=== PATIENT | female | born 1990 | race Caucasian/White ===

== ENCOUNTER 2016-09-30 11:23 | Emergency (ER) | payer OTHER ==
[2016-09-30 12:49] VITALS: BP 112/69
--- NOTE | 2016-09-30 13:19 | UC ---
Throat Pain/Nasal [place] HPI - HPI Summary HPI Summary: ST, vomiting, cough since yesterday. Is at least 10 weeks , not sure how far along. Young children have fevers as well. Denies trouble breathing. - History of Current Complaint Chief Complaint: UCRespiratory Stated Complaint: VOMITING,SORE THROAT Time Seen by Provider: 09/30/16 12:50 Hx Obtained From: Patient Hx Last Menstrual Period: 07/06/16 ?: Yes Onset/Duration: Gradual Onset, Lasting Days Severity: Moderate Cough: Nonproductive Associated Signs & Symptoms: Positive: Vomiting - Allergies/Home Medications Allergies/Adverse Reactions: Allergies Allergy/AdvReac Type Severity Reaction Status Date / Time No Known Allergies Allergy Verified 05/10/16 12:28 PMH/Surg Hx/FS Hx/Imm Hx Previously Healthy: Yes - Surgical History Surgical History: Yes Surgery Procedure, Year, and Place: - Family History Known Family History: Positive: Hypertension - Social History Lives: With Family Alcohol Use: None Substance Use Type: None Smoking Status (MU): Former Smoker Have You Smoked in the Last Year: Yes When Did the Patient Quit Smoking/Using Tobacco: Jul 2016 Review of Systems Constitutional: Negative Skin: Negative Eyes: Negative ENT: Sore Throat Respiratory: Cough Cardiovascular: Negative Gastrointestinal: Vomiting Genitourinary: Negative Motor: Negative Neurovascular: Negative Musculoskeletal: Negative Neurological: Negative Psychological: Negative All Other Systems Reviewed And Are Negative: Yes Physical Exam Triage Information Reviewed: Yes Appearance: Well-Appearing, No Pain Distress Vital Signs: Initial Vital Signs Temp 99.7 F 09/30/16 12:43 Pulse 112 09/30/16 12:43 Resp 20 09/30/16 12:43 BP 112/69 09/30/16 12:43 Pulse Ox 95 09/30/16 12:43 Vital Signs Reviewed: Yes Eye Exam: Normal Eyes: Positive: Conjunctiva Clear ENT: Positive: Hearing grossly normal, Pharyngeal erythema - R>L Dental Exam: Normal Neck exam: Normal Neck: Positive: Supple, Nontender, No Lymphadenopathy Respiratory Exam: Normal Respiratory: Positive: Chest non-tender, Lungs clear, Normal breath sounds, No respiratory distress, No accessory muscle use Cardiovascular: Positive: No Murmur, Tachycardia Musculoskeletal Exam: Normal Neurological Exam: Normal Neurological: Positive: Alert Psychological Exam: Normal Skin Exam: Normal Throat Pain/Nasal Course/Dx - Differential Dx/Diagnosis Provider Diagnoses: Strep throat. influenza B Discharge - Discharge Plan Condition: Stable Disposition: HOME Prescriptions: Amoxicillin (*) [Amoxicillin 875 MG (*)] 875 mg PO BID #20 tab Oseltamivir CAP* [Tamiflu CAP*] 75 mg PO BID #10 cap Patient Education Materials: Influenza (ED), Strep Throat (ED) Referrals: Perri Barksdale MD [Primary Care Provider] - Additional Instructions: Call or return if you develop increasing fever, shortness of breath, chest pain , bloody sputum, or otherwise worsen. If you have not improved at all after several days, contact your primary care physician or return here.
== END 2016-09-30 14:09 | disposition home or self-care (01) ==
LOC: UCCORT 11:23
DX: J11.1 Influenza due to unidentified influenza virus with other respiratory manifestations (principal); Z87.891 Personal history of nicotine dependence
CPT/HCPCS: 87502; 87651; 99212; G0463

== ENCOUNTER 2018-09-16 08:45 | Emergency (ER) | payer OTHER ==
[2018-09-16 09:16] VITALS: BP 113/48
[2018-09-16 09:42] LABS: Influenza A Molecular POSITIVE (Negative)
--- NOTE | 2018-09-16 10:03 | ED ---
Respiratory - HPI Summary HPI Summary: 28 yr old female with one day of runny nose, nasal congestion, coughing, and myalgias. She believes she has the flu. She denies fever. She has other ill exposures in the home with similar symptoms. No other complaints. - History of Current Complaint Chief Complaint: UCGeneralIllness Stated Complaint: FLU SX'S Time Seen by Provider: 09/16/18 09:23 Pain Intensity: 5 - Allergy/Home Medications Allergies/Adverse Reactions: Allergies Allergy/AdvReac Type Severity Reaction Status Date / Time No Known Allergies Allergy Verified 09/16/18 09:12 Home Medications: Home Medications Acetaminophen [Qc Acetaminophen 8 Hours] 650 mg PO ONCE 09/16/18 [History Confirmed 09/16/18] Ibuprofen TAB* [Motrin TAB* 400 MG] 400 mg PO Q6H PRN 09/16/18 [History Confirmed 09/16/18] PMH/Surg Hx/FS Hx/Imm Hx - Surgical History Surgery Procedure, Year, and Place: 3 Infectious Disease History: No Infectious Disease History: Denies: Hx Clostridium Difficile, Hx Hepatitis, Hx Human Immunodeficiency Virus (HIV), Hx of Known/Suspected MRSA, Hx Shingles, Hx Tuberculosis, Hx Known/ Suspected VRE, Hx Known/Suspected VRSA, History Other Infectious Disease, Traveled Outside the [place] in Last 30 Days - Family History Known Family History: Positive: Hypertension - Social History Occupation: Works From/At Home Lives: With Family Alcohol Use: Rare Substance Use Type: Reports: None Smoking Status (MU): Light Every Day Tobacco Smoker Type: Cigarettes Amount Used/How Often: 3-4 per day Have You Smoked in the Last Year: Yes Review of Systems Positive: Chills, Fatigue. Negative: Fever Positive: Nasal Discharge Positive: Cough Positive: Myalgia All Other Systems Reviewed And Are Negative: Yes Physical Exam Triage Information Reviewed: Yes Vital Signs On Initial Exam: Initial Vitals Temp Pulse Resp BP Pulse Ox 98.6 F 119 18 113/48 98 09/16/18 09:11 09/16/18 09:11 09/16/18 09:11 09/16/18 09:11 09/16/18 09:11 Vital Signs Reviewed: Yes Appearance: Positive: Well-Appearing, No Pain Distress Skin: Positive: Warm, Skin Color Reflects Adequate Perfusion Eyes: Positive: EOMI ENT: Positive: Pharynx normal, Nasal congestion, Nasal drainage Neck: Positive: Nontender Respiratory/Lung Sounds: Positive: Clear to Auscultation, Breath Sounds Present Cardiovascular: Positive: RRR. Negative: Murmur Abdomen Description: Negative: Distended Musculoskeletal: Positive: Strength/ROM Intact Neurological: Positive: Sensory/Motor Intact, Alert, Oriented to Person Place, Time, CN Intact II-III Psychiatric: Positive: Normal Diagnostics - Vital Signs Vital Signs Temp Pulse Resp BP Pulse Ox 09/16/18 09:11 98.6 F 119 18 113/48 98 - Laboratory Lab Results: Lab Results 09/16/18 Range/Units 09:38 Influenza A (Rapid) Positive A (Negative) Lab Statement: Any lab studies that have been ordered have been reviewed, and results considered in the medical decision making process. Disposition - Course Course Of Treatment: 28 yr old with influenza. Rx Tamiflu. - Diagnoses Provider Diagnoses: Influenza A Discharge - Sign-Out/Discharge Documenting (check all that apply): Patient Departure All imaging exams completed and their final reports reviewed: No Studies - Discharge Plan Condition: Good Disposition: HOME Prescriptions: Oseltamivir CAP* [Tamiflu CAP*] 75 mg PO BID #10 cap Patient Education Materials: Influenza (ED) Referrals: No Primary Care Phys,NOPCP [Primary Care Provider] - [facility] [Outside] - Billing Disposition and Condition Condition: GOOD Disposition: Home
== END 2018-09-16 10:13 | disposition home or self-care (01) ==
LOC: UCCORT 08:45
DX: J10.1 Influenza due to other identified influenza virus with other respiratory manifestations (principal); F17.210 Nicotine dependence, cigarettes, uncomplicated
CPT/HCPCS: 99212; G0463